=== PATIENT | male | born 1940 | race Caucasian/White ===

== ENCOUNTER 2017-03-02 11:15 | Observation (INO) | payer MEDICARE ==
[2017-03-02] VITALS (7 sets, daily range): BP systolic 144–166; BP diastolic 65–72; PULSE 65–92; RESP 15–18; TEMP 98.5–102.8; O2SAT 93–97
[~2017-03-02] VITALS: Ht 175.3 cm; Wt 89.5 kg
[2017-03-02] MEDS ORDERED: SODIUM CHLOR 0.9% 1000 ML INJ 1,000 ML IV SCH (11:45)
[2017-03-02] MEDS ORDERED: SODIUM CHLORIDE 0.9% FLUSH 10 ML FLUSH IV FLUSH PRN ×2 (11:45→15:30)
[2017-03-02 12:05] LABS: AUTOMATED NEUTROPHIL # 4.5 TH/MM3 (1.8-7.7); BASOPHIL % 0.2 % (0.0-2.0); HEMOGLOBIN 13.8 GM/DL (13.0-17.0); LYMPH % 7.6 % (9.0-44.0); LYMPHOCYTE # 0.4 TH/MM3 (1.0-4.8); MEAN CELL VOLUME 90.6 FL (80.0-100.0); MEAN CORPUSCULAR HEMOGLOBIN 31.2 PG (27.0-34.0); MEAN CORPUSCULAR HGB CONC 34.5 % (32.0-36.0); MEAN PLATELET VOLUME 8.3 FL (7.0-11.0); MONO % 12.3 % (0.0-8.0); MONOCYTE # 0.7 TH/MM3 (0-0.9); NEUT % 79.9 % (16.0-70.0); PLATELET COUNT 89 TH/MM3 (150-450); RED BLOOD COUNT 4.41 MIL/MM3 (4.50-5.90); RED CELL DISTRIBUTION WIDTH 13.9 % (11.6-17.2); WHITE BLOOD COUNT 5.6 TH/MM3 (4.0-11.0)
--- NOTE | 2017-03-02 12:11 | RADRPT ---
EXAM DATE/TIME: 03/02/2017 11:44 [facility] COMPARISON: No previous studies available for comparison. INDICATIONS : Altered mental status and general weakness today. RADIATION DOSE: 56.35 CTDIvol (mGy) MEDICAL HISTORY : Cardiovascular disease. SURGICAL HISTORY : None. ENCOUNTER: Initial ACUITY: 1 day PAIN SCALE: 0/10 LOCATION: Bilateral head TECHNIQUE: Multiple contiguous axial images were obtained of the head. Using automated exposure control and adj ustment of the mA and/or kV according to patient size, radiation dose was kept as low as reasonably a chievable to obtain optimal diagnostic quality images. DICOM format image data is available electro nically for review and comparison. FINDINGS: CEREBRUM: The ventricles are normal for age. No evidence of midline shift, mass lesion, hemorrhage or acute in farction. No extra-axial fluid collections are seen. POSTERIOR FOSSA: The cerebellum and brainstem are intact. The 4th ventricle is midline. The cerebellopontine angle i s unremarkable. EXTRACRANIAL: The visualized portion of the orbits is intact. SKULL: The calvaria is intact. No evidence of skull fracture. CONCLUSION: Normal examination for a patient of this age. Genaro Kelly MD on March 02, 2017 at 12:08 Board Certified Radiologist. This report was verified electronically.
[2017-03-02 12:23] LABS: ALBUMIN 3.6 GM/DL (3.4-5.0); ALT (GPT) 50 U/L (12-78); AST (GOT) 38 U/L (15-37); BICARBONATE 25.4 MEQ/L (21.0-32.0); BLOOD UREA NITROGEN 25 MG/DL (7-18); CALCIUM 8.4 MG/DL (8.5-10.1); CHLORIDE 98 MEQ/L (98-107); CREATININE 1.44 MG/DL (0.60-1.30); GLOMERULAR FILTRATION RATE 47 ML/MIN (>89); GLUCOSE,RANDOM 134 MG/DL (74-106); SODIUM (NA) 132 MEQ/L (136-145)
[2017-03-02 12:27] LABS: ALKALINE PHOSPHATASE 64 U/L (45-117); TOTAL BILIRUBIN ADULT 0.7 MG/DL (0.2-1.0); TROPONIN I 0.02 NG/ML (0.02-0.05)
[2017-03-02 13:04] LABS: BANDS 19 % (0-6); LYMPHOCYTES 8 % (9-44); METAMYELOCYTES 1 % (0-1); MONOCYTES 22 % (0-8); NEUTROPHIL # MANUAL DIFF 3.9 TH/MM3 (1.8-7.7); POLYS (SEG NEUTROPHILS) 50 % (16-70)
[2017-03-02 14:07] LABS: BILIRUBIN, URINE NEG (NEG); BLOOD, URINE NEG (NEG); GLUCOSE,URINE NEG (NEG); KETONE, URINE NEG (NEG); NITRITE,URINE NEG (NEG); PH, URINE 5.5 (5.0-8.5); SQUAMOUS EPITHELIAL CELL URINE <1 /hpf (0-5); URINE COLOR YELLOW (YELLW/STRAW); URINE LEUKOCYTE ESTERASE NEG (NEG)
[2017-03-02] MEDS ORDERED: NALOXONE HCL 0.4 MG/ML AMP IV PUSH PRN (15:30)
[2017-03-02] MEDS ORDERED: LEVO75TA3 PO (16:16)
[2017-03-02] MEDS ORDERED: LOSA100T PO (16:16)
[2017-03-02] MEDS ORDERED: HYDR25TA5 PO (16:16)
[2017-03-02] MEDS ORDERED: ASPI-516 CHEW (16:16)
[2017-03-02] MEDS ORDERED: ATOR20TA15 PO (16:16)
[2017-03-02] MEDS ORDERED: LATA0.002 EACH EYE (16:16)
--- NOTE | 2017-03-02 16:18 | HHI.HP ---
HPI Service [facility] Primary Care Physician Non-Staff Admission Diagnosis dehydration, bandemia Diagnoses: Travel History International Travel<30 Days: No Contact w/Intl Traveler <30 Da: No Traveled to Known Affected Are: No History of Present Illness History from patient, ER physician communication, atrophy of medical records. Patient's was present at the bedside. had muscle pains and achiness yesterday worse during the night and in morning today at a meeting, started having chills cant get up, almost leaning to left side almost, could not walk had nausea then but did not vomit but truly for past 3 days, did not feel well, had cold hands etc grandchildren were around and had sickness- soar throat, eye pain, other 2 members of family had soar throat pt himself stated he had some roarness in throat running low grade fever did have cough , not able to expectorate no abdominal pain no chest pains/ no shortness of breath wednesday, had more of soft stool, about 4 x or more - 02/28/17 no black or red stool 1.5 weeks ago, had teeth cleaned- did get one shot of antibiotics- was told it was because knee prosthetic right side that was done 6 months prior no urinary symptoms came here from [place] by car 02/17/17 takes breaks about every 1.5hrs or so Review of Systems Except as stated in HPI: all other systems reviewed are Neg Past Family Social History Past Medical History htn borderline dm PVCs in the 1980s Past Surgical History right knee replacement 6 months ago left rotator cuff right rotator cuff back sx Allergies: Coded Allergies: No Known Allergies (Unverified , 03/02/17) Family History father- valve replacement of heart, cabg, angina mother - small cancer in her lung- had chemo and radiation Social History never smoked no drinking etoh heavily no drugs Physical Exam Vital Signs Vital Signs Date Time Temp Pulse Resp B/P (MAP) Pulse Ox O2 Delivery O2 Flow Rate FiO2 03/02/17 11:38 99.8 65 15 156/69 (98) 97 Room Air 03/02/17 11:38 95 03/02/17 11:35 99.8 69 15 156/65 (69) 95 Physical Exam GENERAL: This is a well-nourished, well-developed patient, in no apparent distress. Very pleasant gentleman, sitting up in bed. SKIN: No rashes, ecchymoses or lesions. Cool and dry. HEAD: Atraumatic. Normocephalic. No temporal or scalp tenderness. EYES: . No scleral icterus. No injection or drainage. ENT: Nose without bleeding, purulent drainage or septal hematoma. Airway patent. NECK: Trachea midline. No JVD. Supple, nontender, no meningeal signs. CARDIOVASCULAR: Regular rate and rhythm without murmurs, gallops, or rubs. RESPIRATORY: Clear to auscultation. Breath sounds equal bilaterally. No wheezes , rales, or rhonchi. GASTROINTESTINAL: Abdomen soft, non-tender, nondistended. No guarding. MUSCULOSKELETAL: Extremities without clubbing, cyanosis, or edema. No calf tenderness. NEUROLOGICAL: Awake and alert. Motor and sensory grossly within normal limits. Normal speech. Laboratory Laboratory Tests Test 03/02/17 11:45 03/02/17 13:40 White Blood Count 5.6 Red Blood Count 4.41 Hemoglobin 13.8 Hematocrit 40.0 Mean Corpuscular Volume 90.6 Mean Corpuscular Hemoglobin 31.2 Mean Corpuscular Hemoglobin Concent 34.5 Red Cell Distribution Width 13.9 Platelet Count 89 Mean Platelet Volume 8.3 Neutrophils (%) (Auto) 79.9 Lymphocytes (%) (Auto) 7.6 Monocytes (%) (Auto) 12.3 Eosinophils (%) (Auto) 0.0 Basophils (%) (Auto) 0.2 Neutrophils # (Auto) 4.5 Lymphocytes # (Auto) 0.4 Monocytes # (Auto) 0.7 Eosinophils # (Auto) 0.0 Basophils # (Auto) 0.0 CBC Comment AUTO DIFF Differential Total Cells Counted 100 Neutrophils % (Manual) 50 Band Neutrophils % 19 Lymphocytes % 8 Monocytes % 22 Neutrophils # (Manual) 3.9 Metamyelocytes 1 Differential Comment FINAL DIFF MANUAL Platelet Estimate LOW Platelet Morphology Comment NORMAL Red Cell Morphology Comment NORMAL Blood Urea Nitrogen 25 Creatinine 1.44 Random Glucose 134 Total Protein 7.0 Albumin 3.6 Calcium Level 8.4 Alkaline Phosphatase 64 Aspartate Amino Transf (AST/SGOT) 38 Alanine Aminotransferase (ALT/SGPT) 50 Total Bilirubin 0.7 Sodium Level 132 Potassium Level 4.1 Chloride Level 98 Carbon Dioxide Level 25.4 Anion Gap 9 Estimat Glomerular Filtration Rate 47 Troponin I 0.02 Ethyl Alcohol Level LESS THAN 3 Urine Color YELLOW Urine Turbidity CLEAR Urine pH 5.5 Urine Specific [place] 1.017 Urine Protein TRACE Urine Glucose (UA) NEG Urine Ketones NEG Urine Occult Blood NEG Urine Nitrite NEG Urine Bilirubin NEG Urine Urobilinogen LESS THAN 2.0 Urine Leukocyte Esterase NEG Urine RBC 1 Urine WBC 1 Urine Squamous Epithelial Cells <1 Microscopic Urinalysis Comment CULT NOT INDICATED Date/Time Source Procedure Growth Status 03/02/17 15:30 Blood Peripheral Aerobic Blood Culture Pending Received 03/02/17 15:30 Blood Peripheral Anaerobic Blood Culture Pending Received 03/02/17 13:45 Nasal Washing Influenza Types A,B Antigen (WADE) - Final NEGATIVE FOR FLU A AND B ANTIGEN.... Complete Result Diagram: 03/02/17 1145 03/02/17 1145 Imaging Last [address] 03/02/17 1135 Signed Impressions: Service Date/Time: Thursday, March 02, 2017 11:44 - CONCLUSION: Normal examination for a patient of this age. Genaro Kelly MD Caprini VTE Risk Assessment Caprini VTE Risk Assessment: Mod/High Risk (score >= 2) Caprini Risk Assessment Model Point Value = 1 Point Value = 2 Point Value = 3 Point Value = 5 Age 41-60 Minor surgery BMI > 25 kg/m2 Swollen legs Varicose veins or History of unexplained or recurrent spontaneous Oral contraceptives or hormone replacement Sepsis (< 1 month) Serious lung disease, including pneumonia (< 1 month) Abnormal pulmonary function Acute myocardial infarction Congestive heart failure (< 1 month) History of inflammatory bowel disease Medical patient at bed rest Age 61-74 Arthroscopic surgery Major open surgery (> 45 min) Laparoscopic surgery (> 45 min) Malignancy Confined to bed (> 72 hours) Immobilizing plaster cast Central venous access Age >= 75 History of VTE Family history of VTE Factor V Leiden Prothrombin [id number] Lupus anticoagulant Anticardiolipin antibodies Elevated serum homocysteine Heparin-induced thrombocytopenia Other congenital or acquired thrombophilia Stroke (< 1 month) Elective arthroplasty Hip, pelvis, or leg fracture Acute spinal cord injury (< 1 month) Prophylaxis Regimen Total Risk Factor Score Risk Level Prophylaxis Regimen 0-1 Low Early ambulation 2 Moderate Order ONE of the following: *Sequential Compression Device (SCD) *Heparin 5000 units SQ BID 3-4 Higher Order ONE of the following medications: *Heparin 5000 units SQ TID *Enoxaparin/Lovenox 40 mg SQ daily (WT < 150 kg, CrCl > 30 mL/min) *Enoxaparin/Lovenox 30 mg SQ daily (WT < 150 kg, CrCl > 10-29 mL/min) *Enoxaparin/Lovenox 30 mg SQ BID (WT < 150 kg, CrCl > 30 mL/min) AND/OR *Sequential Compression Device (SCD) 5 or more Highest Order ONE of the following medications: *Heparin 5000 units SQ TID (Preferred with Epidurals) *Enoxaparin/Lovenox 40 mg SQ daily (WT < 150 kg, CrCl > 30 mL/min) *Enoxaparin/Lovenox 30 mg SQ daily (WT < 150 kg, CrCl > 10-29 mL/min) *Enoxaparin/Lovenox 30 mg SQ BID (WT < 150 kg, CrCl > 30 mL/min) AND *Sequential Compression Device (SCD) Assessment and Plan Assessment and Plan Impression: dehydration DINO viral syndrome possible early strep possible early pneumonia thrombocytopenia bandemia lymphocytosis monocytosis Plan: iv hydration repeat labs for renal function and cbc hematology eval resume home meds hold hctz dvt prophyaxis with ambulation Will not start patient on antibiotics since likely this is viral. Discussed Condition With Patient, at the bedside, ER physician Mitchel Javed MD Mar 02, 2017 16:18
--- NOTE | 2017-03-02 17:21 | PD ---
HPI Chief Complaint: General Weakness Time Seen by Provider: 11:26 Travel History International Travel<30 days: No Contact w/Intl Traveler<30days: No Traveled to known affect area: No History of Present Illness HPI This is a 77-year-old male who presents to the emergency department with generalized weakness that's been going on for 2 days, constant, moderate severity, associated with some chills. Today the patient was going down for a condo presentation when he felt very weak like he was going to pass out, and he felt like he was shaking all over. Patient was brought via ambulance to the emergency department. Patient does report that he was with his grandchildren one week ago who were ill and he may have picked up something there. PFSH Past Medical History Hx Anticoagulant Therapy: Yes (ASPIRIN EVERY OTHER DAY) Cardiovascular Problems: Yes High Cholesterol: Yes Patient Takes Glucophage: No Diminished Hearing: No Hypertension: Yes Influenza Vaccination: Yes Past Surgical History Joint Replacement: Yes (RT KNEE ) Social History Alcohol Use: Yes Tobacco Use: No Substance Use: No Allergies-Medications (Allergen,Severity, Reaction): Coded Allergies: No Known Allergies (Unverified , 03/02/17) Reported Meds & Prescriptions Reported Meds & Active Scripts Active Reported Aspirin 81 Mg Chew 81 Mg CHEW DAILY Latanoprost Opth Drops (Latanoprost) 0.005% Drops 1 Drop EACH EYE HS Refrigerate until opened. Atorvastatin (Atorvastatin Calcium) 20 Mg Tab 20 Mg PO HS Hydrochlorothiazide 25 Mg Tab 25 Mg PO DAILY Levothyroxine (Levothyroxine Sodium) 75 Mcg Tab 75 Mcg PO DAILY Losartan (Losartan Potassium) 100 Mg Tab 100 Mg PO DAILY Review of Systems Except as stated in HPI: all other systems reviewed are Neg Physical Exam Narrative GENERAL:Well appearing, no acute distress SKIN: Focused skin assessment warm and dry. HEAD: Atraumatic. Normocephalic. EYES: Pupils equal and round. No injection or drainage. ENT: Moist mucous membranes. Mild posterior pharyngeal erythema with no exudates. NECK: Trachea midline. CARDIOVASCULAR: Regular rate and rhythm. No murmur appreciated. RESPIRATORY: Clear to auscultation. Breath sounds equal bilaterally. GASTROINTESTINAL: Abdomen soft, non-tender, nondistended. MUSCULOSKELETAL: No obvious deformities. NEUROLOGICAL: Awake and alert. No obvious cranial nerve deficits. Moving all extremities. PSYCHIATRIC: Appropriate mood and affect; insight and judgment normal. Data Data Last Documented VS Vital Signs Date Time Temp Pulse Resp B/P (MAP) Pulse Ox O2 Delivery O2 Flow Rate FiO2 03/02/17 11:38 99.8 65 15 156/69 (98) 97 Room Air Orders Orders Electrocardiogram (03/02/17 11:35) Complete Blood Count With Diff (03/02/17 11:35) Comprehensive Metabolic Panel (03/02/17 11:35) Troponin I (03/02/17 11:35) Ct Brain W/O Iv Contrast(Rout) (03/02/17 11:35) Blood Glucose (03/02/17 11:35) Ecg Monitoring (03/02/17 11:35) Iv Access Insert/Monitor (03/02/17 11:35) Oximetry (03/02/17 11:35) Sodium Chloride 0.9% Flush (Ns Flush) (03/02/17 11:45) Alcohol (Ethanol) (03/02/17 11:35) Sodium Chlor 0.9% 1000 Ml Inj (Ns 1000 M (03/02/17 11:45) Influenzae A/B Antigen (03/02/17 13:25) Urinalysis - C+S If Indicated (03/02/17 13:35) Blood Culture (03/02/17 14:44) Admit Order (Ed Use Only) (03/02/17 15:28) Place In Observation (03/02/17 ) Vital Signs (Adult) Q4H (03/02/17 15:30) Activity Oob With Assistance (03/02/17 15:30) Pool Nurse / Telemetry .CONTINUOUS (03/02/17 15:30) Diet Heart Healthy (03/02/17 Dinner) Sodium Chlor 0.9% 1000 Ml Inj (Ns 1000 M (03/02/17 16:00) Sodium Chloride 0.9% Flush (Ns Flush) (03/02/17 15:30) Sodium Chloride 0.9% Flush (Ns Flush) (03/02/17 21:00) Basic Metabolic Panel (Bmp) (03/03/17 06:00) Complete Blood Count With Diff (03/03/17 06:00) Pt Request For Service (03/02/17 15:30) Case Management Consult (03/02/17 15:30) Naloxone Inj (Narcan Inj) (03/02/17 15:30) Complete Blood Count With Diff (03/02/17 17:00) ^ Other Nursing Orders (03/02/17 15:30) Basic Metabolic Panel (Bmp) (03/02/17 17:00) Labs Laboratory Tests Test 03/02/17 11:45 03/02/17 13:40 White Blood Count 5.6 TH/MM3 Red Blood Count 4.41 MIL/MM3 Hemoglobin 13.8 GM/DL Hematocrit 40.0 % Mean Corpuscular Volume 90.6 FL Mean Corpuscular Hemoglobin 31.2 PG Mean Corpuscular Hemoglobin Concent 34.5 % Red Cell Distribution Width 13.9 % Platelet Count 89 TH/MM3 Mean Platelet Volume 8.3 FL Neutrophils (%) (Auto) 79.9 % Lymphocytes (%) (Auto) 7.6 % Monocytes (%) (Auto) 12.3 % Eosinophils (%) (Auto) 0.0 % Basophils (%) (Auto) 0.2 % Neutrophils # (Auto) 4.5 TH/MM3 Lymphocytes # (Auto) 0.4 TH/MM3 Monocytes # (Auto) 0.7 TH/MM3 Eosinophils # (Auto) 0.0 TH/MM3 Basophils # (Auto) 0.0 TH/MM3 CBC Comment AUTO DIFF Differential Total Cells Counted 100 Neutrophils % (Manual) 50 % Band Neutrophils % 19 % Lymphocytes % 8 % Monocytes % 22 % Neutrophils # (Manual) 3.9 TH/MM3 Metamyelocytes 1 % Differential Comment FINAL DIFF MANUAL Platelet Estimate LOW Platelet Morphology Comment NORMAL Red Cell Morphology Comment NORMAL Blood Urea Nitrogen 25 MG/DL Creatinine 1.44 MG/DL Random Glucose 134 MG/DL Total Protein 7.0 GM/DL Albumin 3.6 GM/DL Calcium Level 8.4 MG/DL Alkaline Phosphatase 64 U/L Aspartate Amino Transf (AST/SGOT) 38 U/L Alanine Aminotransferase (ALT/SGPT) 50 U/L Total Bilirubin 0.7 MG/DL Sodium Level 132 MEQ/L Potassium Level 4.1 MEQ/L Chloride Level 98 MEQ/L Carbon Dioxide Level 25.4 MEQ/L Anion Gap 9 MEQ/L Estimat Glomerular Filtration Rate 47 ML/MIN Troponin I 0.02 NG/ML Ethyl Alcohol Level LESS THAN 3 MG/DL Urine Color YELLOW Urine Turbidity CLEAR Urine pH 5.5 Urine Specific [place] 1.017 Urine Protein TRACE mg/dL Urine Glucose (UA) NEG mg/dL Urine Ketones NEG mg/dL Urine Occult Blood NEG Urine Nitrite NEG Urine Bilirubin NEG Urine Urobilinogen LESS THAN 2.0 MG/DL Urine Leukocyte Esterase NEG Urine RBC 1 /hpf Urine WBC 1 /hpf Urine Squamous Epithelial Cells <1 /hpf Microscopic Urinalysis Comment CULT NOT INDICATED MDM Medical Decision Making Medical Screen Exam Complete: Yes Emergency Medical Condition: Yes Interpretation(s) Temperature is 99.8 White blood cell count is 5.6 19% bandemia 8% lymphocytes 22% monocytes Renal insufficiency with a GFR of 47 Last [address] 03/02/17 1135 Signed Impressions: Service Date/Time: Thursday, March 02, 2017 11:44 - CONCLUSION: Normal examination for a patient of this age. Genaro Kelly MD Differential Diagnosis Stroke, viral syndrome, influenza, malignancy, TIA Narrative Course This is a 77-year-old male who presents to the emergency department having had an episode of severe weakness earlier today feeling like he was going to pass out prompting him to call 911. Here in the emergency department he was placed on a monitor and an IV was established. Labs were obtained which demonstrate an unusual differential with 19% bands, 80% lymphocytes and 22% monocytes. The patient is also thrombocytopenic with a platelet count of 89. This may reflect a viral syndrome but also concerns me for underlying hematologic malignancy. CT was obtained as the patient demonstrated some confusion here in the emergency department and by report per his . He has a normal gross neurologic exam. I think patient would benefit from observation for IV hydration, telemetry and repeat blood work. Cultures were obtained. Diagnosis Primary Impression: Weakness Additional Impression: Bandemia Admitting Information Admitting Physician Requests: Observation Pilar López MD Mar 02, 2017 17:20
[2017-03-02] MEDS: SODIUM CHLOR 0.9% 1000 ML INJ 1,000 ML IV SCH (17:30)
[2017-03-02] MEDS: ACETAMINOPHEN 325 MG TAB PO PRN (20:42)
[2017-03-02 21:00] LABS: AUTOMATED NEUTROPHIL # 4.6 TH/MM3 (1.8-7.7); BASOPHIL % 0.2 % (0.0-2.0); HEMATOCRIT 37.7 % (39.0-51.0); HEMOGLOBIN 13.2 GM/DL (13.0-17.0); LYMPH % 7.5 % (9.0-44.0); LYMPHOCYTE # 0.4 TH/MM3 (1.0-4.8); MEAN CELL VOLUME 89.5 FL (80.0-100.0); MEAN CORPUSCULAR HEMOGLOBIN 31.4 PG (27.0-34.0); MEAN CORPUSCULAR HGB CONC 35.1 % (32.0-36.0); MEAN PLATELET VOLUME 8.2 FL (7.0-11.0); MONO % 11.2 % (0.0-8.0); MONOCYTE # 0.6 TH/MM3 (0-0.9); NEUT % 81.1 % (16.0-70.0); PLATELET COUNT 83 TH/MM3 (150-450); RED BLOOD COUNT 4.21 MIL/MM3 (4.50-5.90); RED CELL DISTRIBUTION WIDTH 13.8 % (11.6-17.2); WHITE BLOOD COUNT 5.7 TH/MM3 (4.0-11.0)
[2017-03-02] MEDS ORDERED: LATANOPROST 0.005% OPHT SOLN 2.5 ML BTL EACH EYE SCH (21:00)
[2017-03-02] MEDS ORDERED: ATORVASTATIN 20 MG TAB PO SCH (21:00)
[2017-03-02] MEDS: SODIUM CHLORIDE 0.9% FLUSH 10 ML FLUSH IV FLUSH SCH (21:00)
--- NOTE | 2017-03-02 21:12 | RADRPT ---
EXAM DATE/TIME: 03/02/2017 21:01 [facility] COMPARISON: No previous studies available for comparison. INDICATIONS : Fever. Body ache. Weakness. MEDICAL HISTORY : None. SURGICAL HISTORY : None. ENCOUNTER: Initial ACUITY: 3 days PAIN SCORE: 7/10 LOCATION: Bilateral chest FINDINGS: PA and lateral views of the chest demonstrate the lungs to be symmetrically aerated without evidence of mass, infiltrate or effusion. The cardiomediastinal contours are unremarkable. Osseous structure s are intact. CONCLUSION: No acute disease. Latrell Gibson MD on March 02, 2017 at 21:10 Board Certified Radiologist. This report was verified electronically.
[2017-03-02 21:25] LABS: BICARBONATE 24.9 MEQ/L (21.0-32.0); CALCIUM 8.1 MG/DL (8.5-10.1); CREATININE 1.5 MG/DL (0.60-1.30)
[2017-03-03] VITALS (9 sets, daily range): BP systolic 100–166; BP diastolic 54–75; PULSE 56–82; RESP 17–21; TEMP 98.2–102.1; O2SAT 94–97
[2017-03-03] MEDS: ACETAMINOPHEN 325 MG TAB PO PRN (00:47)
[2017-03-03 05:56] LABS: HEMATOCRIT 35.6 % (39.0-51.0); HEMOGLOBIN 12.7 GM/DL (13.0-17.0); MEAN CELL VOLUME 89.6 FL (80.0-100.0); MEAN CORPUSCULAR HGB CONC 35.7 % (32.0-36.0); MEAN PLATELET VOLUME 8.7 FL (7.0-11.0); PLATELET COUNT 77 TH/MM3 (150-450); RED BLOOD COUNT 3.98 MIL/MM3 (4.50-5.90); RED CELL DISTRIBUTION WIDTH 13.6 % (11.6-17.2); WHITE BLOOD COUNT 6.7 TH/MM3 (4.0-11.0)
[2017-03-03] MEDS ORDERED: LEVOTHYROXINE SODIUM 75 MCG TAB PO SCH (06:00)
[2017-03-03 06:18] LABS: BICARBONATE 27.2 MEQ/L (21.0-32.0); CALCIUM 8.4 MG/DL (8.5-10.1); CREATININE 1.39 MG/DL (0.60-1.30)
[2017-03-03 07:36] LABS: BANDS 6 % (0-6); LYMPHOCYTES 8 % (9-44); MONOCYTES 16 % (0-8); NEUTROPHIL # MANUAL DIFF 5.1 TH/MM3 (1.8-7.7); POLYS (SEG NEUTROPHILS) 70 % (16-70)
[2017-03-03] MEDS ORDERED: HYDROCHLOROTHIAZIDE 25 MG TAB PO SCH (09:00)
[2017-03-03] MEDS ORDERED: LOSARTAN 50 MG TAB PO SCH (09:00)
[2017-03-03] MEDS: SODIUM CHLORIDE 0.9% FLUSH 10 ML FLUSH IV FLUSH SCH (10:48)
[2017-03-03] MEDS: SODIUM CHLOR 0.9% 1000 ML INJ 1,000 ML IV SCH (10:49)
--- NOTE | 2017-03-03 10:57 | HHI.PR ---
Subjective Remarks in no acute distress. T max 102.8. no fever this morning. feels much better today an d hoping that he could go home later today. RN at the bedside. Objective Vitals Vital Signs Date Time Temp Pulse Resp B/P (MAP) Pulse Ox O2 Delivery O2 Flow Rate FiO2 03/03/17 07:38 98.2 60 21 126/61 (82) 97 03/03/17 04:22 98.8 59 17 100/54 (69) 94 03/03/17 04:00 60 03/03/17 00:47 102.1 03/03/17 00:01 82 03/02/17 23:35 102.8 77 17 166/72 (103) 94 03/02/17 20:20 102.8 74 18 147/70 (95) 95 03/02/17 20:00 92 03/02/17 18:48 98.5 71 18 144/68 (93) 93 03/02/17 16:22 99.4 65 16 97 03/02/17 11:38 99.8 65 15 156/69 (98) 97 Room Air 03/02/17 11:38 95 03/02/17 11:35 99.8 69 15 156/65 (95) 95 I/O 03/02/17 03/02/17 03/02/17 03/03/17 03/03/17 03/03/17 06:59 14:59 22:59 06:59 14:59 22:59 Intake Total 1000 ml 489 ml Balance 1000 ml 489 ml Intake IV Total 1000 ml 489 ml # Voids 2 Result Diagram: 03/03/17 0513 03/03/17 0513 Imaging Last Impressions Head CT 03/02/17 1135 Signed Impressions: Service Date/Time: Thursday, March 02, 2017 11:44 - CONCLUSION: Normal examination for a patient of this age. Genaro Kelly MD Chest X-Ray 03/02/17 0000 Signed Impressions: Service Date/Time: Thursday, March 02, 2017 21:01 - CONCLUSION: No acute disease. Latrell Gibson MD Objective Remarks GENERAL: This is a well-nourished, well-developed patient, in no apparent distress. CARDIOVASCULAR: Regular rate and regular rhythm without murmurs, gallops, or rubs. RESPIRATORY: Clear to auscultation. Breath sounds equal bilaterally. No wheezes , rales, or rhonchi. GASTROINTESTINAL: Abdomen soft, non-tender, nondistended. Normal, active bowel sounds MUSCULOSKELETAL: Extremities without clubbing, cyanosis, or edema. NEURO: Alert & Oriented x4 to person, place, time, situation. Moves all ext x4 Medications and IVs Inpatient Medications Acetaminophen (Tylenol) 650 mg Q6H PRN PO fever >101 Last administered on at 00:47; Start 03/02/17 at 20:45 Atorvastatin Calcium (Lipitor) 20 mg HS PO Last administered on 03/02/17at 20:42 ; Start 03/02/17 at 21:00 Hydrochlorothiazide (Hydrodiuril) 25 mg DAILY PO ; Start 03/03/17 at 09:00; Status Future Hold Latanoprost (Xalatan 0.005% Opth Soln) 1 drop HS EACH EYE ; Start 03/02/17 at 21: 00 Levothyroxine Sodium (Synthroid) 75 mcg DAILY@0600 PO Last administered on at 06:36; Start 03/03/17 at 06:00 Losartan Potassium (Cozaar) 100 mg DAILY PO ; Start 03/03/17 at 09:00 Naloxone HCl (Narcan Inj) 0.4 mg UNSCH PRN IV PUSH SEE LABEL COMMENTS; Start at 15:30 Sodium Chloride (NS Flush) 2 ml BID IV FLUSH ; Start 03/02/17 at 21:00 A/P Assessment and Plan A/P - likely viral syndrome afebrile this morning and clinically improving. continue with supportive care with IV fluid and antipyretics as needed. negative for flu and negative strep screen. follow the blood cultures. -renal insufficiency with unknown duration- continue IV fluid- f/u as outpatient. Discharge Planning possible dc home later this evening if blood cultures negative and afebrile. f/u; pcp. d/w the patient and JAYSON. Izaiah Diggs MD Mar 03, 2017 10:57
--- NOTE | 2017-03-03 12:56 | EKG ---
Date Performed: 03/02/2017 Time Performed: 11:42:48 PTAGE: 77 years EKG: Sinus rhythm POSSIBLE LEFT ATRIAL ENLARGEMENT BORDERLINE LEFT AXIS DEVIATION NONSPECIFIC ST & T-WAVE ABNORMALITY BORDERLINE ECG NO PREVIOUS TRACING DOCTOR: Spike Barker Interpretating Date/Time 03/03/2017 12:54:45
[2017-03-03] MEDS ORDERED: GUAISYP7 PO (17:49)
== END 2017-03-03 19:24 | disposition home or self-care (01) ==
LOC: NEPD 11:15 → NEDA 15:32 → NEPGCP 16:28
PROVIDERS: ADMIT Internal Medicine; ATTEND Internal Medicine
DX: E86.0 Dehydration (principal); N17.9 Acute kidney failure, unspecified; B34.9 Viral infection, unspecified; D72.825 Bandemia; I10 Essential (primary) hypertension; D69.6 Thrombocytopenia, unspecified; R73.03 Prediabetes; Z96.651 Presence of right artificial knee joint; D72.820 Lymphocytosis (symptomatic); D72.821 Monocytosis (symptomatic)
CPT/HCPCS: 70450; 71046; 80048; 80053; 80307; 81001; 84484; 85007; 85025; 85027; 87040; 87081; 87205; 87804; 87880; 93005; 96360; 96361; 97161; 99285; G0378; G8987; G8988; G8989; J7030